=== PATIENT | male | born 2000 | race Two or more races ===

== ENCOUNTER 2022-05-24 18:50 | Emergency (ER) | payer BC, SELFPAY ==
[2022-05-24 19:39] VITALS: BP 110/66; PULSE 78; RESP 18; TEMP 36.8; O2SAT 99; BMI 31.6
[2022-05-24 20:14] LABS: Strep A DNA Probe* NOT DETECTED (Not Detectd)
[2022-05-24 20:26] LABS: PCR FLU A Negative PCR FLU A (Negative); PCR FLU B Negative PCR FLU B (Negative); PCR RSV Negative PCR RSV (Negative)
[2022-05-24 20:36] LABS: SARS PCR* Negative SARS-CoV-2 (Negative)
[2022-05-24 20:48] VITALS: BP 115/74; PULSE 80; RESP 18; TEMP 37; O2SAT 99
--- NOTE | 2022-05-24 20:52 | ED_ITS ---
HPI - URI/Sore Throat General Chief Complaint: Sore Throat Stated Complaint: Cough, congestion, sore throat Time Seen by Provider: 05/24/22 20:41 History of Present Illness HPI Narrative: Pt is a 22 year old gentleman who comes in with a one week history of pharyngitis and cough. Pt has a history of asthma but does not currently have an inhaler. Pt has had no fevers or chills. No nausea or vomiting. Pt tests negative for influenza, covid, rsv and strep. Pt has had no sick contacts and no travel. Pt otherwise has been well. Related Data Home Medications Medication Instructions Recorded Confirmed albuterol sulfate 90 mcg/actuation 1 inh inhalation Q4-6H PRN 05/24/22 05/24/22 aerosol inhaler (Ventolin HFA) Allergies Allergy/AdvReac Type Severity Reaction Status Date / Time No Known Drug Allergies Allergy Verified 05/24/22 19:42 Review of Systems Status of ROS: Reports: 10 or more systems reviewed and unremarkable except as noted in History and below [facility] Medical History (Updated 05/24/22 @ 20:59 by Neal Mccabe MD) Asthma Surgical History (Updated 05/24/22 @ 20:46 by Santhosh Fabian RN) No significant past surgical history Social History Smoking Status: Never smoker Do you use any of these nicotine containing products: None Second hand tobacco smoke exposure: No How often do you have a drink containing alcohol: never How often do you have six or more drinks on one occasion: Never AUDIT-C Alcohol total score: 0 Non-prescribed substance use: denies use Exam Narrative: Exam Narrative: EXAM GENERAL: Patient appears comfortable and well. EYES: No scleral icterus. ENT: Tympanic membranes and oropharynx normal. THYROID: no thyroid nodules or thyromegaly. LYMPH: No supraclavicular or cervical lymphadenopathy. SKIN: Visible skin seen during exam normal or with benign process only. EXT: No dependent lower extremity pedal edema. HEART: Regular rate and rhythm with no murmurs, rubs, or gallops. LUNGS: Clear to auscultation bilaterally with no crackles or wheezes. ABD: Soft, non tender, non distended. PSYCH: Good eye contact, speech is not pressured. Const: Vital Signs, click to edit/add: Vital Signs - 24 hr 05/24/22 19:39 05/24/22 20:48 Temperature 98.2 F 98.6 F Pulse Rate [Right Pulse Oximeter] 78 80 Respiratory Rate 18 18 Blood Pressure [Ri ght Upper Arm] 110/66 115/74 Pulse Oximetry 99 99 Oxygen Delivery Me thod Room Air Room Air Course Course Hospital Course: Pt seen and examined. Vital Signs Vital signs: Initial Vital Signs Temperature 98.2 F 05/24/22 19:39 Temperature Source Temporal Artery Scan 05/24/22 19:39 Pulse Rate 78 05/24/22 19:39 Respiratory Rate 18 05/24/22 19:39 Blood Pressure 110/66 05/24/22 19:39 Blood Pressure Mean 80 05/24/22 19:39 Blood Pressure Position Sitting 05/24/22 19:39 Pulse Oximetry 99 05/24/22 19:39 Oxygen Delivery Method 05/24/22 19:39 Vital Signs Temperature 98.2 F 05/24/22 19:39 Pulse Rate 78 05/24/22 19:39 Respiratory Rate 18 05/24/22 19:39 Blood Pressure 110/66 05/24/22 19:39 Pulse Oximetry 99 05/24/22 19:39 Oxygen Delivery Method 05/24/22 19:39 Temperature 98.6 F 05/24/22 20:48 Pulse Rate 80 05/24/22 20:48 Respiratory Rate 18 05/24/22 20:48 Blood Pressure 115/74 05/24/22 20:48 Pulse Oximetry 99 05/24/22 20:48 Oxygen Delivery Method 05/24/22 20:48 MDM - URI/Sore Throat MDM Narrative Medical decision making narrative: Pt is a 22 year old gentleman with asthma who presents with pharyngitis and cough. Pt has no fever. Exam and vitals normal. Due to history of asthma will refill his MDI albuterol and place on a short course of prednisone. Differential Diagnosis Differential diagnosis: Likely upper respiratory infection, otitis media, sinusitis, viral infection, bronchitis, influenza and pharyngitis Medical Records Attestation: I reviewed the patient's medical records. Lab Data Labs: Lab Results 05/24/22 05/24/22 Range/Units 19:36 19:36 SARS-CoV-2 (PCR) Negative SARS-CoV-2 (Negative) Influenza Type A (PCR) Negative PCR FLU A (Negative) Influenza Type B (PCR) Negative PCR FLU B (Negative) RSV (PCR) Negative PCR RSV (Negative) Group A Strep DNA NOT DETECTED (Not Detectd) Discharge Plan Discharge Clinical Impression: Upper respiratory infection Patient Disposition: Home, Self-Care Condition: Stable Instructions: Upper Respiratory Infection (ED) Additional Instructions: Prednisone and Albuterol as directed Follow up with PCP as needed Activity Level: No Restrictions Discharge Diet: Regular Prescriptions: No Action albuterol sulfate [Ventolin HFA] 90 mcg/actuation HFA aerosol inhaler 1 inh inhalation Q4-6H PRN Stand Alone Forms: MyHealth Info Instructions
[2022-05-24 21:05] VITALS: BP 115/74; PULSE 80; RESP 18; TEMP 37
== END 2022-05-24 21:12 | disposition home or self-care (01) ==
LOC: ED 21:12
PROVIDERS: Emergency Provider Internal Medicine
DX: J06.9 Acute upper respiratory infection, unspecified (principal)
CPT/HCPCS: 87502; 87634; 87635; 87651; 99283; A9270